=== PATIENT | male | born 1960 | race Caucasian/White ===

== ENCOUNTER 2017-09-11 07:48 | Day surgery (SDC) | payer OTHER ==
[2017-09-05 08:39] VITALS: BMI 32.3
[~2017-09-11 07:48] MED LIST: DEXAMETHASONE SOD PHOSPHATE 10 MG/ML 1 ML VIAL IV ONE; HEPARIN SODIUM,PORCINE 5,000 UNIT/ML 1 ML VIAL SQ ONE; LIDOCAINE 1% 20 ML VIAL (10MG/ML) FOR IV START INTRADERMA PRN; MIDAZOLAM 2 MG/2 ML VIAL IV PRN; SCOPOLAMINE 1.5MG/72HR PATCH TRANSDERM ONE; ceFAZolin IN SWFI 2 GM/20 ML SYRINGE IVP ONE
[2017-09-11] MEDS: LACTATED RINGERS 1,000 ML IV SCH ×2 (08:32→11:07)
[2017-09-11] MEDS ORDERED: ONDANSETRON 4 MG/2 ML VIAL IVP ONE (08:42)
--- NOTE | 2017-09-11 10:32 | P.GSHP ---
History of Present Illness H&P Date: 09/11/17 Chief Complaint: Incarcerated umbilical hernia This a 57-year-old male who presents today for laparoscopic robotic system repair of incarcerated we'll hernia. Patient developed a painful masses umbilicus. Past Medical History Past Medical History: GERD/Reflux, Hypertension Additional Past Medical History / Comment(s): umbilical hernia History of Any Multi-Drug Resistant Organisms: None Reported Past Surgical History: Orthopedic Surgery Additional Past Surgical History / Comment(s): C5-6 fusion, left shoulder sx x3 Past Anesthesia/Blood Transfusion Reactions: No Reported Reaction Smoking Status: Former smoker - Past Family History Mother Family Medical History: Cancer Medications and Allergies Home Medications Medication Instructions Recorded Confirmed Type Acetaminophen [Tylenol Arthritis] 650 mg PO Q6H PRN 09/05/17 09/11/17 History Ibuprofen [Motrin] 800 mg PO Q12HR PRN 09/05/17 09/11/17 History Losartan Potassium 50 mg PO HS 09/05/17 09/11/17 History Omeprazole 20 mg PO DAILY 09/05/17 09/11/17 History Allergies Allergy/AdvReac Type Severity Reaction Status Date / Time No Known Allergies Allergy Verified 09/11/17 08:38 Surgical - Exam Vital Signs Temp Pulse Resp BP Pulse Ox 98 F 91 18 128/93 97 09/11/17 08:34 09/11/17 08:34 09/11/17 08:34 09/11/17 08:34 09/11/17 08:34 - General well developed, no distress - Eyes PERRL - ENT normal pinna - Neck no masses, no bruits - Respiratory normal expansion - Cardiovascular Rhythm: regular - Abdomen Abdomen: soft, non tender Hernia: umbilical (5cm incarcerated umbilical hernia) Assessment and Plan Assessment: Carcinoma local hernia. We'll perform laparoscopic robotic-assisted repair.
[2017-09-11] MEDS ORDERED: MIDAZOLAM 2 MG/2 ML VIAL ONE (11:10)
[2017-09-11] MEDS ORDERED: PROPOFOL 10 MG/ML 20 ML VIAL IV ONE (11:10)
[2017-09-11] MEDS ORDERED: NEOSTIGMINE 1 MG/ML 10 ML VIAL ONE (11:10)
[2017-09-11] MEDS ORDERED: HYDROmorphone (PF) 1 MG/ML ONE (11:10)
[2017-09-11] MEDS ORDERED: GLYCOPYRROLATE 0.2 MG/ML 2 ML VIAL ONE (11:10)
[2017-09-11] MEDS ORDERED: LABETALOL 5 MG/ML VIAL MDV ONE (11:10)
[2017-09-11] MEDS ORDERED: PHENYLEPHRINE-0.9% NACL SYG 1 MG/10 ML SYRINGE ONE (11:10)
[2017-09-11] MEDS ORDERED: LIDOCAINE 1% INJ 10MG/ML (20 ML MDV) ONE (11:10)
[2017-09-11] MEDS ORDERED: SUCCINYLCHOLINE CHLORIDE 100 MG/5 ML SYR IV ONE (11:10)
[2017-09-11] MEDS ORDERED: KETOROLAC 30 MG/ML 1 ML VIAL ONE (11:10)
[2017-09-11] MEDS ORDERED: BUPIVACAINE (PF) 0.5% 30 ML VIAL SQ ONE ×3 (11:35→11:42)
[2017-09-11] MEDS ORDERED: LACTATED RINGERS 1,000 ML IV ONE ×3 (11:51→12:30)
[2017-09-11] MEDS ORDERED: HYDROmorphone 1 MG/ML 1 ML SYRINGE IVP ONE ×4 (12:35→12:55)
--- NOTE | 2017-09-11 12:35 | P.OP ---
Date of Procedure: 09/11/17 Preoperative Diagnosis: Incarcerated umbilical hernia Postoperative Diagnosis: Incarcerated umbilical hernia Procedure(s) Performed: Laparoscopic robotic-assisted repair of incarcerated umbilical hernia Partial omentectomy Anesthesia: KEESHA Surgeon: Sergo Weston Estimated Blood Loss (ml): 5 Pathology: other (Omentum) Condition: stable Disposition: PACU Description of Procedure: The patient was placed on the operating table in the supine position. He received general anesthesia. His abdomen was prepped and draped usual fashion. Using a 5 mm optical trocar under direct visualization the peritoneal cavity was entered in the left upper quadrant. The abdomen was then insufflated. The laparoscope was placed back into the perineal cavity. Next a 8 mm robotic trocar was placed in the left lower quadrant and a 12 mm robotic trocar was placed in the left lateral position. The original 5 mm trocar was exchanged for a 8 mm robotic trocar. The patient's placed in the left side up position. And the patient was docked the robot. The umbilical hernia was visualized. Using hook cautery the peritoneum over the umbilical hernia was excised. The incarcerated omentum was dissected free from the hernia. The nonviable omentum was transected with the hook cautery. The fascial opening was repaired using 0V LOC suture. Next a piece of 11 cm round ventral light ST mesh was placed into the. Cavity and secured with 2 OV lock suture. The patient was undocked the robot. The needles were retrieved. The fascia of the 12 mm trocar site was closed with 0 Ethibond suture. Skin was closed interrupted 3-0 Monocryl suture. Dermabond dressings was applied. Patient top procedure well and was sent to recovery room stable condition.
[2017-09-11 12:52] VITALS: RESP 16; TEMP 97
[2017-09-11] MEDS ORDERED: MEPERIDINE 50 MG/ML SYRINGE IVP ONE ×3 (13:10→13:19)
[2017-09-11] MEDS: fentaNYL (PF) 50 MCG/ML 2 ML AMP IV PRN ×2 (13:48→13:59)
[2017-09-11] MEDS ORDERED: HYDROcodone/APAP 7.5-325MG 1 EACH TAB PO ONE (15:01)
[2017-09-11 15:12] VITALS: BP 129/82; PULSE 108
== END 2017-09-11 15:39 | disposition home or self-care (01) ==
LOC: OR 07:48
PROVIDERS: ATTEND Surgery
DX: K42.0 Umbilical hernia with obstruction, without gangrene (principal); K21.9 Gastro-esophageal reflux disease without esophagitis; I10 Essential (primary) hypertension; Z87.891 Personal history of nicotine dependence; Z79.899 Other long term (current) drug therapy
CPT/HCPCS: 49653; S2900; 88302